=== PATIENT | male | born 1965 | race African-American/Black ===

== ENCOUNTER 2017-03-17 12:24 | Inpatient (IN) ==
[2017-03-17] MEDS ORDERED: SODIUM CHLORIDE 0.9% 1,000 ML IV STA (13:15)
--- NOTE | 2017-03-17 13:19 | Emergency Department Note ---
Arrival - Arrival Chief Complaint: GI Bleed/Rectal Stated Complaint: stomp ED Nursing Triage Note: C/O Having blood in his stools x 2 weeks, states he has ulcercolititis , + chills, states he wakes up sweating at night., + upper abd.pain , + nausea, + vomiting Mode of Arrival: Wheelchair Limitations: No Limitations Source: Patient Time Seen by Provider: 03/17/17 13:08 - History of Present Illness HPI Narrative: The patient complains of rectal bleeding for the past 3 weeks. He says that sometimes it is bright red, sometimes dark. It is always very loose and he is having 3-4 episodes per day. He has a history of this in the past due to ulcerative colitis but has not had problems since around 2013. He has had some diffuse abdominal pain, chills and night sweats. He denies any fever. He has had some vomiting but no hematemesis. Allergies/Adverse Reactions: Allergies Allergy/AdvReac Type Severity Reaction Status Date / Time No Known Allergies Allergy Unverified 03/17/17 12:31 Review of System - Review of System 12 point system: reviewed and no additional remarkable complaints except as stated - Review of System Constitutional: Present: chills, night sweats. Absent: fever Head/Ears/Nose/Throat: Absent: nasal drainage, sore throat Respiratory: Absent: cough, respiratory distress Cardiovascular: Absent: chest pain Gastrointestinal: Present: abdominal pain, nausea, vomiting, hematochezia. Absent: constipation Genitourinary male: Absent: dysuria Musculoskeletal: Present: leg pain (Recent bilateral ankle fractures) Medical,Surgical,& Family Hx - Medical History Gastrointestinal: History of: Ulcerative Colitis Musculoskeletal: History of: Musculoskeletal Problems (Recent ankle fractures) - Surgical History Surgical History: noncontributory - Family History Family History: noncontributory - Social History Smoking Status: Never smoker Frequency of Alcohol Use: None Type of Drug Use: None Exam Physical Examination: GENERAL: Alert. No acute distress. HEENT: Normocephalic and atraumatic. There is no nasal drainage. No pharyngeal erythema or exudate. NECK: Normal inspection. Supple. No lymphadenopathy or meningismus. LUNGS: No respiratory distress. Clear to auscultation bilaterally, no wheezes, rales or rhonchi. HEART: Regular rate and rhythm. ABDOMEN: Soft, nontender and nondistended with normoactive bowel sounds. BACK: Normal inspection. SKIN: Color normal. Warm and dry. EXTREMITIES: Nontender. Normal range of motion. No pedal edema. NEUROLOGICAL/PSYCHIATRIC: Alert and oriented -3 with normal mood and affect. Cranial nerves normal. No motor or sensory deficit. Vital Signs: Vital Signs Temperature 98.6 F 03/17/17 14:02 Pulse Rate 105 H 03/17/17 14:02 Respiratory Rate 20 03/17/17 14:02 Blood Pressure 141/97 03/17/17 14:02 O2 Sat by Pulse Oximetry 100 03/17/17 12:27 Course - Reevaluation(s) Reevaluation #1: I think the patient is having an ulcerative colitis flare and will need admission with GI consult. I have discussed the patient with the hospitalist service who will see him and admit. Time: 16:04 Results - Labs CBC & BMP: 03/17/17 14:23 03/17/17 14:23 Lab Results: I have reviewed the patients labs Labs: Laboratory Tests 03/17/17 14:23 Total Bilirubin 0.70 AST 14 ALT 12 L Alkaline Phosphatase 96 Albumin 3.2 L Globulin 4.5 H Albumin/Globulin Ratio 0.7 L Amylase 49 Lipase 177.0 Disposition Clinical Impression: Hematochezia, Ulcerative colitis, Abdominal pain, Vomiting Case discussed with: patient, patient's family Disposition: Disch To Home/Self Care Condition: Stable Time of Disposition: 16:10
[2017-03-17 14:33] LABS: Basophils # 0.1 10*3/uL (0.0-0.2); Basophils % 0.4 % (0.0-0.8); Eosinophils # 0.3 10*3/uL (0.0-0.87); Eosinophils % 2.1 % (0.00-10.9); Hematocrit 37.5 VOL% (42.0-52.0); Hemoglobin 12.7 GM/DL (14.0-18.0); Immature Granulocytes % 0.7 %; Immature Granulocytes Absolute 0.12 #; Lymphocytes # 1.8 10*3/uL (1.4-4.0); Lymphocytes % 11.1 % (21.2-54.2); Mean Corpuscular HGB Conc 33.9 GM/DL (32-36); Mean Corpuscular Hemoglobin 30 PG (27-34); Mean Corpuscular Volume 88.2 FL (87-102); Mean Platelet Volume 9.8 FL (9.6-12.0); Monocytes # 1.7 10*3/uL (0.11-0.8); Monocytes % 10.2 % (1.7-12.7); Neutrophils # 12.3 10*3/uL (1.4-7.4); Neutrophils % 75.5 % (38.7-73.9); Platelet Count 533 T/CUMM (130-400); Red Blood Count 4.25 MC/CUMM (3.8-5.5); Red Cell Distribution Width 13.1 % (9.3-17.3); White Blood Count 16.2 T/CUMM (4-12)
[2017-03-17 15:00] LABS: Albumin 3.2 G/DL (3.4-5.0); Bilirubin,Total 0.7 MG/DL (0.2-1.0); Calcium 8.9 MG/DL (8.5-10.1); Osmolality,Calculated 267.2 MOS/KG (273-304); Total Protein 7.7 G/DL (6.4-8.3)
[2017-03-17] MEDS ORDERED: MORPHINE 2 MG/1 ML SYRINGE IV PRN (16:16)
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
[2017-03-17 17:09] LABS: Apearance,Urine CLEAR (Clear); Bacteria,Urine Occasional /HPF (Few); Bilirubin,Urine Negative (Negative); Blood, Urine Small mg/dL (Negative); Glucose,Urine (UA) Negative (Negative); Hyaline Casts,Urine 1 /LPF (0-3); Ketones,Urine 20 mg/dL (Negative); Mucus,Urine Occasional /LPF (Occasional); Nitrite,Urine Negative (Negative); Protein,Urine Negative; RBC,Urine 1 /HPF (0-4); Squamous Epithelial Cell,Urine Occasional /HPF (0-10); Urine Color Yellow (Yellow); Urine Specific Gravity 1.011 (1.001-1.035); Urine Urobilinogen < 2.0 EU/DL (0.2-1.0); WBC,Urine 2 /HPF (0-6)
--- NOTE | 2017-03-17 17:48 | XRay Report ---
History is GI bleeding Comparison 01/10/2012 Moderate air scattered in the bowel without disproportionate small bowel dilatation or organomegaly seen Pelvic phleboliths again seen Impression: Nonspecific bowel gas pattern PROCEDURE INTERPRETED AT [facility] DEPARTMENT OF RADIOLOGY Final Report Signed by: Dr. Cathi Alcazar
[2017-03-17] MEDS: SODIUM CHLORIDE 0.9% 1,000 ML IV SCH (17:57)
--- NOTE | 2017-03-17 18:05 | CT Report ---
History is abdominal pain There are multiple renal cysts measuring up to at least dated 2.5 cm. Several mild hyperdensities present in the left kidney with some minimal areas of hyperdensity in the right kidney. No secondary signs of acute ureteral obstruction seen No enlarged retroperitoneal nodes seen The bowel isn't opacified markedly limiting visualization. There is questionable diffuse wall thickening of the colon particularly transverse and left colon with mild stranding in the surrounding fat. Pelvis: No significant free fluid seen. There is questionable prominent wall thickening of the rectosigmoid colon. Atherosclerotic changes present Impression: 1. Questionable diffuse wall thickening in the colon raising question of nonspecific colitis 2. Multiple renal hypodensities and nodular hyperdensities computer related to breast cysts and hemorrhagic cysts, however cannot be definitely characterized. Solid nodules could easily be present. Comparison with any available prior studies would be most helpful The CT exam was performed using one or more of the following dose reduction techniques: Automated exposure control, adjustment of the mA and/or kV according to patient size, or use of iterative reconstruction technique. PROCEDURE INTERPRETED AT [facility] DEPARTMENT OF RADIOLOGY Final Report Signed by: Dr. Cathi Alcazar
[2017-03-17 18:43] LABS: Hematocrit 33.1 VOL% (42.0-52.0); Hemoglobin 11.4 GM/DL (14.0-18.0)
[2017-03-17] MEDS: PANTOPRAZOLE 40 MG VIAL IV SCH (20:08)
[2017-03-17] MEDS: CIPROFLOXACIN INJ 400 MG in PREMIX 1 EACH IV SCH (20:21)
[2017-03-17] MEDS: metroNIDAZOLE INJ 500 MG in PREMIX 1 EACH IV SCH (21:49)
[2017-03-18 01:29] LABS: Basophils # 0.1 10*3/uL (0.0-0.2); Basophils % 0.4 % (0.0-0.8); Eosinophils # 0.6 10*3/uL (0.0-0.87); Eosinophils % 4.1 % (0.00-10.9); Hematocrit 32.4 VOL% (42.0-52.0); Immature Granulocytes % 0.9 %; Immature Granulocytes Absolute 0.14 #; Lymphocytes # 2.4 10*3/uL (1.4-4.0); Lymphocytes % 15.7 % (21.2-54.2); Mean Corpuscular Hemoglobin 29 PG (27-34); Mean Corpuscular Volume 86.6 FL (87-102); Mean Platelet Volume 9.6 FL (9.6-12.0); Monocytes # 1.9 10*3/uL (0.11-0.8); Monocytes % 12.2 % (1.7-12.7); Neutrophils # 10.2 10*3/uL (1.4-7.4); Neutrophils % 66.7 % (38.7-73.9); Platelet Count 519 T/CUMM (130-400); Red Blood Count 3.74 MC/CUMM (3.8-5.5); White Blood Count 15.4 T/CUMM (4-12)
[2017-03-18 01:57] LABS: Alanine Aminotransferase < 9 U/L (16-61); Albumin 2.8 G/DL (3.4-5.0); Alkaline Phosphatase 74 U/L (45-117); Aspartate Amino Transferase 7 U/L (0-37); Blood Urea Nitrogen 11 MG/DL (7-18); Calcium 8.3 MG/DL (8.5-10.1); Glucose 101 MG/DL (74-106); Magnesium 1.9 MG/DL (1.8-2.4); Osmolality,Calculated 273.7 MOS/KG (273-304); Potassium 3.3 MMOL/L (3.5-5.1); Sodium 138 MMOL/L (136-145); Total Protein 6.4 G/DL (6.4-8.3)
[2017-03-18] MEDS: SODIUM CHLORIDE 0.9% 1,000 ML IV SCH ×2 (02:04→11:52)
[2017-03-18 02:56] LABS: Band Neutrophils 12 % (0-10); Eosinophils 4 % (0-10); Lymphocytes 18 % (20-55); Myelocytes 2 %; Segmented Neutrophils 51 % (50-85); Total Cells Counted 100
[2017-03-18 03:05] LABS: Platelet Estimate Increased; Polychromasia Few
[2017-03-18] MEDS: metroNIDAZOLE INJ 500 MG in PREMIX 1 EACH IV SCH ×3 (04:50→21:39)
[2017-03-18] MEDS: CIPROFLOXACIN INJ 400 MG in PREMIX 1 EACH IV SCH ×2 (08:46→19:55)
[2017-03-18] MEDS: PANTOPRAZOLE 40 MG VIAL IV SCH ×2 (08:49→20:00)
[2017-03-18 09:19] LABS: Hematocrit 30.9 VOL% (42.0-52.0); Hemoglobin 10.6 GM/DL (14.0-18.0)
--- NOTE | 2017-03-18 09:51 | Hospitalist Progress Note ---
Assessment and Plan - Time spent with patient Time spent with patient: Greater than 30 minutes (1) Hematochezia Status: Acute Assessment and plan: We will continue empiric antibiotic ciprofloxacin and Flagyl. Monitor H&H. If this is a possible flare of ulcerative colitis, may need to add 5 ASA's and steroids on board. We will start and allow GI to decide if this is an UC flare and whether we need to continue. Since he has poor oral intake, will need to change fluid to D5 1/2 normal saline to allow some calorie intake. Monitor fingerstick glucose Consult gastroenterology Current Visit: Yes (2) Ulcerative colitis Status: Acute Current Visit: Yes (3) Abdominal pain Status: Acute Current Visit: Yes (4) Vomiting Status: Acute Current Visit: Yes Hospitalist: Subjective Interval history: Note also received colitis patient admitted for abdominal discomfort, nausea, vomiting and passage of bloody stool. H&H has been stable. CT scan reported as nonspecific colitis No fever. Drop in hematocrit noted, possibly hemodilution. He continues to have diarrhea quite frequently, less blood. He has had previous ulcerative colitis flares, last one was about 3 years ago but was not as severe. He has not been on any medication for it. Does not follow up with gastroenterology He is able to tolerate oral feed but goes to the bathroom right after Exam - Constitutional Vitals: Period Temp Pulse Resp BP Sys/Gutiérrez Pulse Ox Last 24 Hr 97.3 F-98.6 F 74-105 16-20 129-158/81-97 94-100 Exam: General appearance: normal weight, no acute distress - Head Head exam: Present: normal inspection - Eye Eye exam: Present: EOMI Pupils: Present: ADITI - Neck Neck exam: Present: normal inspection. Absent: thyromegaly - Respiratory Respiratory exam: Present: clear to auscultation bilaterally. Absent: stridor, wheezes - Cardiovascular Cardiovascular exam: Present: regular rate and rhythm - GI/Abdominal GI/Abdominal exam: Present: normal bowel sounds, soft. Absent: firm, guarding, rebound - Extremities Exam Extremities exam: Present: normal inspection, full ROM. Absent: edema - Neurological Exam Neurological exam: Present: alert, oriented X3, normal gait, CN II-XII intact - Psychiatric Psychiatric exam: Present: normal affect, normal mood. Absent: agitated, anxious - Skin Skin exam: Present: normal color, warm, dry Results - Labs CBC & BMP: 03/18/17 09:10 03/18/17 01:16 Lab Results: I have reviewed the past 24 hour labs
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
[2017-03-18] MEDS: LABETALOL 20 MG/4 ML SYRINGE IV PRN (12:09)
[2017-03-18] MEDS: methylPREDNISolone SOD SUC 40 MG/1 ML VIAL IV SCH (13:01)
[2017-03-18] MEDS: DEXT 5% NACL 0.9% KCL 40 MEQ 40 MEQ/1,000 ML BAG IV SCH ×2 (13:02→21:45)
[2017-03-18] MEDS: sulfaSALAzine 500 MG TABLET PO SCH (20:00)
[2017-03-19] MEDS: methylPREDNISolone SOD SUC 40 MG/1 ML VIAL IV SCH ×2 (00:57→11:40)
[2017-03-19] MEDS: metroNIDAZOLE INJ 500 MG in PREMIX 1 EACH IV SCH ×3 (05:26→22:28)
[2017-03-19] MEDS: DEXT 5% NACL 0.9% KCL 40 MEQ 40 MEQ/1,000 ML BAG IV SCH ×3 (05:26→21:05)
[2017-03-19 06:48] LABS: Basophils # 0.1 10*3/uL (0.0-0.2); Basophils % 0.5 % (0.0-0.8); Eosinophils % 0.1 % (0.00-10.9); Hematocrit 30.1 VOL% (42.0-52.0); Hemoglobin 10.5 GM/DL (14.0-18.0); Immature Granulocytes % 2.2 %; Immature Granulocytes Absolute 0.32 #; Lymphocytes # 1.2 10*3/uL (1.4-4.0); Lymphocytes % 8.2 % (21.2-54.2); Mean Corpuscular HGB Conc 34.9 GM/DL (32-36); Mean Corpuscular Hemoglobin 30 PG (27-34); Mean Platelet Volume 9.7 FL (9.6-12.0); Monocytes # 1.3 10*3/uL (0.11-0.8); Monocytes % 9.1 % (1.7-12.7); Neutrophils # 11.7 10*3/uL (1.4-7.4); Neutrophils % 79.9 % (38.7-73.9); Platelet Count 533 T/CUMM (130-400); Red Blood Count 3.46 MC/CUMM (3.8-5.5); Red Cell Distribution Width 13.2 % (9.3-17.3); White Blood Count 14.6 T/CUMM (4-12)
[2017-03-19 07:19] LABS: Alanine Aminotransferase < 9 U/L (16-61); Albumin 2.6 G/DL (3.4-5.0); Alkaline Phosphatase 71 U/L (45-117); Aspartate Amino Transferase 4 U/L (0-37); Blood Urea Nitrogen 8 MG/DL (7-18); Calcium 8.4 MG/DL (8.5-10.1); Glucose 134 MG/DL (74-106); Potassium 3.9 MMOL/L (3.5-5.1); Sodium 136 MMOL/L (136-145); Total Protein 6.4 G/DL (6.4-8.3)
[2017-03-19 07:30] LABS: Band Neutrophils 9 % (0-10); Eosinophils 1 % (0-10); Giant Platelets Few; Hypochromasia 1+; Lymphocytes 8 % (20-55); Platelet Estimate Increased; Segmented Neutrophils 74 % (50-85); Total Cells Counted 100
[2017-03-19] MEDS: CIPROFLOXACIN INJ 400 MG in PREMIX 1 EACH IV SCH ×2 (07:59→21:04)
--- NOTE | 2017-03-19 09:39 | Hospitalist Progress Note ---
<CharanjitMichelle - Last Filed: 03/19/17 09:36> Assessment and Plan (1) Abdominal pain Status: Acute Assessment and plan: The patient was evaluated by gastroenterology on yesterday. We appreciate the input. We agree with the recommendations to continue aggressive crystalloid resuscitation, empiric antibiotic coverage, and intravenous corticosteroids. GI to manage. We will assist in the perfusion of supportive measures. Current Visit: Yes (2) Ulcerative colitis Status: Acute Assessment and plan: Mesalamine and Solu-Medrol intravenously was started on yesterday. We will continue aggressive fluid resuscitation and empiric antibiotic coverage as ordered. Current Visit: Yes Hospitalist: Subjective Interval history: Patient seen and examined; chart reviewed. No significant overnight events reported per staff. GI consultation on yesterday. Exam - Constitutional Vitals: Period Temp Pulse Resp BP Sys/Gutiérrez Pulse Ox Last 24 Hr 97.5 F-98.3 F 65-80 15-18 118-159/75-96 98-100 General appearance: normal weight, no acute distress - Head Head exam: Present: normal inspection, normocephalic - Eye Eye exam: Present: EOMI Pupils: Present: ADITI, normal accommodation - ENT ENT exam: Present: normal exam, normal external ear exam - Neck Neck exam: Present: normal inspection. Absent: lymphadenopathy, meningismus, thyromegaly - Respiratory Respiratory exam: Present: clear to auscultation bilaterally. Absent: rales, rhonchi, stridor, wheezes - Cardiovascular Cardiovascular exam: Present: regular rate and rhythm. Absent: carotid bruit, diastolic murmur, gallop, JVD, rubs, systolic murmur - GI/Abdominal GI/Abdominal exam: Present: normal bowel sounds, tenderness (Diffuse tenderness) - Extremities Exam Extremities exam: Present: normal inspection, normal capillary refill, full ROM. Absent: edema - Back Exam Back exam: Present: normal inspection - Neurological Exam Neurological exam: Present: alert, oriented X3, CN II-XII intact - Psychiatric Psychiatric exam: Present: normal affect, normal mood - Skin Skin exam: Present: normal color, warm, dry Results - Labs CBC & BMP: 03/19/17 06:25 03/19/17 06:25 Lab Results: I have reviewed the past 24 hour labs <Ruben Ewing - Last Filed: 03/19/17 12:19> Assessment and Plan (1) Hematochezia Status: Acute Current Visit: Yes (2) Ulcerative colitis Status: Acute Current Visit: Yes (3) Abdominal pain Status: Acute Current Visit: Yes (4) Vomiting Status: Acute Current Visit: Yes Exam - Constitutional Vitals: Period Temp Pulse Resp BP Sys/Gutiérrez Pulse Ox Last 24 Hr 97.5 F-99.7 F 65-74 15-18 118-154/75-93 91-100 Results - Labs CBC & BMP: 03/19/17 06:25 03/19/17 06:25
[2017-03-19] MEDS: sulfaSALAzine 500 MG TABLET PO SCH ×2 (10:23→21:05)
[2017-03-19] MEDS: PANTOPRAZOLE 40 MG VIAL IV SCH ×2 (10:24→21:05)
--- NOTE | 2017-03-19 12:33 | Gastrointestinal Progress Note ---
Assessment and Plan - Time spent with patient Time spent with patient: Less than 30 minutes (1) Hematochezia Status: Acute Current Visit: Yes (2) Ulcerative colitis Status: Acute Current Visit: Yes (3) Anemia Status: Acute Current Visit: Yes (4) Other specified counseling Status: Acute Current Visit: Yes Exam (Progress Note) - Constitutional Vitals: Period Temp Pulse Resp BP Sys/Gutiérrez Pulse Ox Last 24 Hr 97.5 F-99.7 F 65-74 15-18 118-154/75-93 91-100 Results - Labs CBC & BMP: 03/19/17 06:25 03/19/17 06:25 Note Addendum: PLEASE NOTE -- automatic citation of patient information is unavoidable in this electronic note. I have made a reasonable effort to review the information cited , but it is not a part of my evaluation, impression, or recommendation unless specifically discussed in the dictated text that follows. As well, voice recognition software was used in the creation of this clinical note. Reasonable effort was made to identify and correct gross errors. Despite proofreading, errors in business consult may be present, including nonsense verbiage at times. If you encounter such an error, please contact me at for discussion and correction. -- Katie Chief complaint: blood in the stool History of present illness: the patient is a 51-year-old male seen for follow- up of ulcerative colitis. He reports improvement since yesterday with fewer bowel movements but continues to see some blood in his stool. He is tolerating food okay but is not very hungry. He is not having any abdominal discomfort. Review of systems: 12 point review of systems was negative except as documented above. Inpatient medications: ciprofloxacin, Flagyl, labetalol, Protonix, normal saline infusion Physical examination: Vital Signs: Current vital signs reviewed and documented above. General Appearance: sitting on the edge of his bed. Comfortable. Conversant. Head: Normocephalic. Neck: Palpation of the neck revealed no abnormalities. Eyes: No scleral icterus. No scleral injection. No conjunctival pallor. Oral Cavity: Odor of breath was normal. No drooling was observed. Lips showed no abnormalities. Floor of the mouth showed no abnormalities. Pharynx: Oropharynx was normal. Lungs: Respiration rhythm and depth was normal. Cardiovascular: Heart rate and rhythm were normal. No murmurs were appreciated. Abdomen: abdomen was not distended. Abdominal palpation revealed mild diffuse tenderness and no hepatosplenomegaly. Ascites was not discovered. Abdominal auscultation revealed positive bowel sounds. Musculoskeletal System: Musculoskeletal system was grossly normal. Neurological: level of consciousness was normal. Speech was normal. Skin: General appearance was normal. Color and pigmentation were normal. No skin lesions. Laboratory: white blood count 14.6, hemoglobin 10.5, hematocrit 30.1, MCV 87, platelets 533, stool culture negative, blood cultures negative Radiology: CT of the abdomen and pelvis, 03/17/17 -- questionable diffuse wall thickening in the colon particularly transverse and left colon with stranding present; incidental findings in both kidneys Impressions: #1. Hematochezia -- the patient is improving clinically. He will need colonoscopy with timing dependent on clinical progress. If patient does not improve with steroid therapy, this will likely need to be done during this admission. If not, we could consider outpatient colonoscopy once patient is adequately controlled. #2. Ulcerative colitis -- the patient is experiencing some improvement with steroid antibiotic. We will continue current therapy and follow progress. He will need outpatient management as previously discussed. #3. Anemia -- the patient is holding stable at present. We will continue to monitor. #4. Other specified counseling -- The patient was seen for less than 30 minutes. The patient was counseled for greater than 50% of this time regarding differential diagnosis, likely diagnosis, diagnostic and therapeutic alternatives, risks/benefits/alternatives of medications and procedures, and plan of care generally. The patient expressed understanding and wishes to proceed. Recommendations: -- continued volume management -- continue antibiotic -- continue Solu-Medrol, 60 mg intravenously twice daily -- start mesalamine compound versus sulfasalazine depending on patient's formulary choices and likelihood of continued affordability (these will likely be needed long-term) -- monitor blood counts and transfuse as indicated -- colonoscopy with timing based on clinical progress -- upper endoscopy with timing based on clinical progress -- thank you for this consult. Dr. Joy will assume G.I. care for this patient tomorrow
[2017-03-20] MEDS: methylPREDNISolone SOD SUC 40 MG/1 ML VIAL IV SCH ×3 (00:33→23:32)
[2017-03-20] MEDS: metroNIDAZOLE INJ 500 MG in PREMIX 1 EACH IV SCH ×3 (05:06→22:23)
[2017-03-20] MEDS: DEXT 5% NACL 0.9% KCL 40 MEQ 40 MEQ/1,000 ML BAG IV SCH ×2 (06:03→11:58)
[2017-03-20 06:18] LABS: Basophils # 0.1 10*3/uL (0.0-0.2); Basophils % 0.3 % (0.0-0.8); Eosinophils % 0.2 % (0.00-10.9); Hematocrit 31.1 VOL% (42.0-52.0); Hemoglobin 10.7 GM/DL (14.0-18.0); Immature Granulocytes % 5.1 %; Immature Granulocytes Absolute 0.86 #; Lymphocytes # 1.6 10*3/uL (1.4-4.0); Lymphocytes % 9.7 % (21.2-54.2); Mean Corpuscular HGB Conc 34.4 GM/DL (32-36); Mean Corpuscular Hemoglobin 30 PG (27-34); Mean Corpuscular Volume 87.6 FL (87-102); Monocytes % 5.8 % (1.7-12.7); Neutrophils # 13.3 10*3/uL (1.4-7.4); Neutrophils % 78.9 % (38.7-73.9); Platelet Count 487 T/CUMM (130-400); Red Blood Count 3.55 MC/CUMM (3.8-5.5); Red Cell Distribution Width 13.2 % (9.3-17.3); White Blood Count 16.8 T/CUMM (4-12)
[2017-03-20 06:57] LABS: Albumin 2.7 G/DL (3.4-5.0); Bilirubin,Total 0.6 MG/DL (0.2-1.0); Calcium 8.6 MG/DL (8.5-10.1); Osmolality,Calculated 270.1 MOS/KG (273-304); Potassium 4.2 MMOL/L (3.5-5.1); Total Protein 6.7 G/DL (6.4-8.3)
[2017-03-20 07:01] LABS: Band Neutrophils 20 % (0-10); Hypochromasia 1+; Lymphocytes 9 % (20-55); Myelocytes 3 %; Platelet Estimate Increased; Polychromasia Slight; Segmented Neutrophils 63 % (50-85); Target Cells Slight; Total Cells Counted 100
[2017-03-20 08:25] LABS: Sedimentation Rate-Westergren 34 MM/HR (0-20)
[2017-03-20] MEDS: sulfaSALAzine 500 MG TABLET PO SCH ×2 (09:08→20:31)
[2017-03-20] MEDS: PANTOPRAZOLE 40 MG VIAL IV SCH ×2 (09:18→20:31)
[2017-03-20] MEDS: CIPROFLOXACIN INJ 400 MG in PREMIX 1 EACH IV SCH ×2 (09:18→20:30)
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
--- NOTE | 2017-03-20 15:10 | Hospitalist Progress Note ---
Assessment and Plan (1) Ulcerative colitis Status: Acute Assessment and plan: 1)UC with hematochezia- GI recs pending. He is feeling better- it has been years since he had any problems with US or seen a doctor for it. steroids per GI, continue IVF and antibiotics. Tolerating clears. check labs and H&H in am. Current Visit: Yes (2) Hematochezia Status: Acute Current Visit: Yes Hospitalist: Subjective Interval history: Mr Simon is feeling ok, but continues to have rectal bleeding. He denies nausea or pain. He is not hungry. Exam - Constitutional Vitals: Period Temp Pulse Resp BP Sys/Gutiérrez Pulse Ox Last 24 Hr 97.6 F-99.5 F 64-73 17-18 133-147/81-93 96-100 General appearance: normal weight, no acute distress - Eye Eye exam: Present: EOMI. Absent: scleral icterus - Respiratory Respiratory exam: Present: clear to auscultation bilaterally - Cardiovascular Cardiovascular exam: Present: regular rate and rhythm - GI/Abdominal GI/Abdominal exam: Present: normal bowel sounds, soft. Absent: tenderness - Extremities Exam Extremities exam: Absent: edema - Neurological Exam Neurological exam: Present: alert, oriented X3 - Skin Skin exam: Present: warm, dry Results - Labs CBC & BMP: 03/20/17 05:41 03/20/17 05:41 Lab Results: I have reviewed the past 24 hour labs
[2017-03-20] MEDS: LABETALOL 20 MG/4 ML SYRINGE IV PRN (16:24)
[2017-03-20] MEDS: SODIUM CHLOR 0.45% KCL 20 MEQ 20 MEQ/1,000 ML BAG IV SCH (16:26)
[2017-03-21] MEDS: SODIUM CHLOR 0.45% KCL 20 MEQ 20 MEQ/1,000 ML BAG IV SCH ×2 (04:41→08:07)
[2017-03-21] MEDS: metroNIDAZOLE INJ 500 MG in PREMIX 1 EACH IV SCH (04:42)
[2017-03-21 05:44] LABS: Basophils % 0.2 % (0.0-0.8); Eosinophils % 0.1 % (0.00-10.9); Hemoglobin 9.6 GM/DL (14.0-18.0); Immature Granulocytes % 6.5 %; Immature Granulocytes Absolute 1.06 #; Lymphocytes % 12.1 % (21.2-54.2); Mean Corpuscular HGB Conc 34.3 GM/DL (32-36); Mean Corpuscular Hemoglobin 30 PG (27-34); Mean Platelet Volume 9.4 FL (9.6-12.0); Monocytes # 1.3 10*3/uL (0.11-0.8); Monocytes % 8.2 % (1.7-12.7); NRBC # 0.02 10*3/uL; Neutrophils # 11.9 10*3/uL (1.4-7.4); Neutrophils % 72.9 % (38.7-73.9); Platelet Count 460 T/CUMM (130-400); Red Blood Count 3.22 MC/CUMM (3.8-5.5); Red Cell Distribution Width 13.1 % (9.3-17.3); White Blood Count 16.3 T/CUMM (4-12)
[2017-03-21 06:07] LABS: Band Neutrophils 4 % (0-10); Lymphocytes 8 % (20-55); Platelet Estimate Adequate; Segmented Neutrophils 83 % (50-85); Total Cells Counted 100
[2017-03-21 06:08] LABS: Giant Platelets Few; Hypochromasia 1+
[2017-03-21 06:09] LABS: Burr Cells Slight
[2017-03-21 06:15] LABS: Albumin 2.5 G/DL (3.4-5.0); Bilirubin,Total 1.3 MG/DL (0.2-1.0); Calcium 8.2 MG/DL (8.5-10.1); Osmolality,Calculated 266.2 MOS/KG (273-304); Total Protein 5.9 G/DL (6.4-8.3)
[2017-03-21] MEDS: CIPROFLOXACIN INJ 400 MG in PREMIX 1 EACH IV SCH (08:06)
[2017-03-21] MEDS: sulfaSALAzine 500 MG TABLET PO SCH (08:09)
[2017-03-21] MEDS: PANTOPRAZOLE 40 MG VIAL IV SCH (08:09)
[2017-03-21 08:35] LABS: Sedimentation Rate-Westergren 48 MM/HR (0-20)
--- NOTE | 2017-03-21 09:03 | Gastrointestinal Progress Note ---
Assessment and Plan (1) Abdominal pain Status: Acute Assessment and plan: 03/21-abdominal pain improved, very small amount of rectal bleeding with diarrhea stools, improved. H&H down slightly at 03/23. Advance diet continue to monitor this time. Plan an addendum to followed by Dr. Joy. 03/20-admitted with abdominal pain and rectal bleeding with history of ulcerative colitis as noted below. Continued episodes of rectal bleeding with stable H&H at present time. Stool studies noted below. IV Solu-Medrol has been initiated. Also on IV Cipro and Flagyl. Continue to monitor present time. Plan an addendum will follow Dr. Joy. Current Visit: Yes Gastroenterology - PN: Subj Interval history: CC: Rectal bleeding Patient is seen awake alert sitting up in bed. States he had an uneventful night. He denies any abdominal pain, nausea or vomiting. States he has had very little diarrhea stools and just very small amount of bleeding with each one. He states that this is significantly less. He states that he feels like he is ready to advance his diet at this time. He says that he is not eating at this time because he is tired of clear liquids. We will go ahead and advance him to a regular diet and continue to monitor. His H&H is down slightly at we will continue to monitor this as well. Abdomen is soft, nontender. ROS: Denies shortness breath or chest pain Exam (Progress Note) - Constitutional Vitals: Period Temp Pulse Resp BP Sys/Gutiérrez Pulse Ox Last 24 Hr 97.6 F-99.1 F 67-77 17-18 139-157/72-102 94-98 - Other Additional findings: General appearance: normal weight, no acute distress - Head Head exam: Present: normal inspection, normocephalic - Eye Eye exam: Present: other (Lids and conjunctivae are unremarkable). Absent: scleral icterus - ENT ENT exam: Present: normal exam - Neck Neck exam: Present: normal inspection - Respiratory Respiratory exam: Present: clear to auscultation bilaterally. Absent: rales, rhonchi, wheezes - Cardiovascular Cardiovascular exam: Present: regular rate and rhythm. Absent: diastolic murmur , JVD, systolic murmur - GI/Abdominal GI/Abdominal exam: Present: normal bowel sounds, soft. Absent: ascites, distended, mass, organomegaly, tenderness - Extremities Exam Extremities exam: Present: normal inspection, full ROM - Back Exam Back exam: Present: normal inspection - Neurological Exam Neurological exam: Present: alert, oriented X3 - Psychiatric Psychiatric exam: Present: normal affect, normal mood - Skin Skin exam: Present: normal color, warm, dry Results - Labs CBC & BMP: 03/21/17 04:33 03/21/17 04:33 Lab Results: I have reviewed the past 24 hour labs
--- NOTE | 2017-03-21 10:57 | Discharge Summary ---
Hospital Course - Hospital Course Hospital Course: Mr Simon was admitted with a flare of his Ulcerative Colitis. He has responded to IV steroids and IVF and his appetite has improved. He is not having pain and he has continued to have some blood in his BM but his H&H is stable. He is feeling better and wants to go home. He has tolerated a regular diet. I coordinated care with Dr Joy through [facility] and he recommends discharge today on oral steroids but not antibiotics and to follow up with him in clinic. I will also have him see his PCP because I have started him on losartan for HTN with systolics in the range of 140-150. He will also have his H&H monitored as an outpatient. - Time spent with patient Time with patient DS: Greater than 30 minutes (37 minutes requrired for discharge planning, coordination of care, documentation and medicine reconciliation.) Diagnosis - Discharge Diagnosis (1) Ulcerative colitis Status: Chronic (2) Hematochezia Status: Acute Specialty Discharge - Follow Up or Referrals Follow up with: Taiwo Joy MD [Physician] - 04/11/17 3:15 pm (UC) Your, PCP [Other] (1 week, monitor HTN) Discharge Plan - Discharge Data Disposition: Disch To Home/Self Care Condition at Discharge: Stable Discharge Diet: advance to your usual diet Activity: resume usual activities as tolerated - Discharge Medications New predniSONE TAB [PredniSONE] 30 mg PO DAILY #90 tablet sulfaSALAzine [Azulfidine] 500 mg PO BID #60 tablet Losartan [Cozaar] 25 mg PO DAILY #30 tablet - Follow Up or Referral Follow Up: Taiwo Joy MD [Physician] - 04/11/17 3:15 pm ([facility]) - Forms/Instructions Instructions: Rectal Bleeding (DC), Ulcerative Colitis (DC) Exam - Constitutional Vitals: Period Temp Pulse Resp BP Sys/Gutiérrez Pulse Ox Last 24 Hr 97.4 F-99.1 F 67-77 17-18 139-157/72-102 94-100 General appearance: normal weight, no acute distress - Eye Eye exam: Present: EOMI. Absent: scleral icterus - Respiratory Respiratory exam: Present: clear to auscultation bilaterally - Cardiovascular Cardiovascular exam: Present: regular rate and rhythm - GI/Abdominal GI/Abdominal exam: Present: normal bowel sounds, soft. Absent: tenderness - Extremities Exam Extremities exam: Absent: edema Discharge Results Procedures and tests throughout hospitalization: Pending Orders 03/17/17 14:04 Occult Blood, Stool Stat 03/17/17 18:21 Blood Culture Routine 03/22/17 04:00 CMP [Comprehensive Metabolic Panel] IN AM CRP [C-Reactive Protein Inflamm] IN AM Comp Blood Count Auto Diff IN AM Sedimentation Rate-Westergren IN AM Labs on day of discharge: Labs from last 24 hours 03/21/17 03/21/17 04:33 04:33 WBC 16.3 H RBC 3.22 L Hgb 9.6 L Hct 28.0 L MCV 87.0 MCH 30 MCHC 34.3 RDW 13.1 Plt Count 460 H MPV 9.4 L Neut % (Auto) 72.9 Lymph % (Auto) 12.1 L [place] % (Auto) 8.2 Eos % (Auto) 0.1 Baso % (Auto) 0.2 Neut # (Auto) 11.9 H Lymph # (Auto) 2.0 [place] # (Auto) 1.3 H Eos # (Auto) 0.0 Baso # (Auto) 0.0 Total Counted 100 Immature Gran % 6.5 Nucleated RBC % 0.1 Immature Gran # 1.06 Segmented Neutrophils 83 Band Neutrophils 4 Lymphocytes 8 L Monocytes 5 Nucleated RBCs # 0.02 Platelet Estimate Adequate Giant Platelets Few Immature Plt Fraction 0.0 Hypochromasia 1+ [place] Cells Slight ESR Westergren 48 H Sodium 134 L Potassium 4.0 Chloride 100 Carbon Dioxide 26 Anion Gap 12.0 BUN 6 L Creatinine 0.80 GFR Calculation 111 BUN/Creatinine Ratio 7.00 Glucose 122 H Calculated Osmolality 266.2 L Calcium 8.2 L Total Bilirubin 1.30 H AST 12 ALT 13 L Alkaline Phosphatase 63 C-Reactive Protein 2.32 H Total Protein 5.9 L Albumin 2.5 L Globulin 3.4 Albumin/Globulin Ratio 0.7 L Preliminary micro results at discharge 03/17/17 18:21 Blood Culture - Preliminary Blood No growth at 3 days 03/17/17 18:21 Blood Culture - Preliminary Blood No growth at 3 days DS: Provider Date of admission: 03/17/17 16:13 Primary care physician: . No PCP Attending physician on admission: Candelario Davis MD Consults: 03/17/17 16:16 Consult to Physician [CONS] Routine Comment: Consulting Provider: Taiwo Joy When should Consulting Provider be notified: In am Consult to Specialist Group: Gastroenterology Person Notified: TRACIE CAMI SURJITCARO Date Notified: 03/20/17 Time Notified: 08:42 Consult Notification Comment: called to Dr Wilson at 0898 on 03-18-17 03/17/17 18:05 Consult to Dietitian [CONS] Routine Reason for Dietitian: Other Consult Comment: wt loss Discharging clinician: Carmen Mackey MD
[2017-03-21] MEDS ORDERED: LOSARTAN 25 MG TABLET PO SCH (11:00)
[2017-03-21 11:35] VITALS: BP 126/88
[2017-03-21] MEDS: methylPREDNISolone SOD SUC 40 MG/1 ML VIAL IV SCH (11:46)
== END 2017-03-21 13:00 | disposition home or self-care (01) | DRG 387 ==
LOC: N.ED 12:24 → N.EDINP 16:13 → SUATTDRO 16:13 → N.5E 16:37
PROVIDERS: ADMIT Family Medicine; ATTEND Internal Medicine